=== PATIENT | male | born 1965 | race African-American/Black ===

== ENCOUNTER 2016-12-07 14:17 | Emergency (ER) | payer BC, OTHER ==
[~2016-12-07] VITALS: Ht 172.7 cm; Wt 73.9 kg
--- NOTE | ~2016-12-07 | EKG ---
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 : 1965 Requested By: Jayce Samuel Order Number: [id number] MD: Milad Burns Measurements Intervals [place] Rate: 46 P: -27 FL: 157 QRS: -33 QRSD: 86 T: 2 QT: 440 QTc: 385 Interpretive Statements Sinus bradycardia Left axis deviation Borderline T wave abnormalities Compared to ECG 10/26/2015 15:21:29 No significant changes Electronically Signed On 12-08-2016 7:44:05 CDT by Milad Burns [email or web address] <ELECTRONICALLY SIGNED> By: Milad Burns MD, [facility] 12/08/16 0744 1429 1429 Milad Burns MD, FACC /EPI
[~2016-12-07 14:17] MED LIST: AMOXICILLIN 50500 MG PO; IBUPROFEN200 M1 PO; TYLENOL325 MG PO
[2016-12-07 14:30] LABS: HEMATOCRIT 40.5 % (42.0-52.0); HEMOGLOBIN 14.2 gm/dL (14.0-18.0); MCH 34.2 pg (26.0-34.0); MCHC 35.1 g/dL (28.0-37.0); MCV 97.6 fL (80.0-100.0); PLATELET COUNT 193 thou/uL (150-400); RBC 4.15 mil/uL (4.50-6.00); RDW 13.5 % (10.5-14.5); WBC 4.8 thou/uL (4.0-11.0)
[2016-12-07 14:44] LABS: CALCIUM 8.4 mg/dL (8.5-10.1); MANUAL DIFF YES; POTASSIUM 3.9 mmol/L (3.5-5.1)
[2016-12-07 14:49] LABS: ALBUMIN 3.8 g/dL (3.4-5.0); TOTAL BILIRUBIN 0.7 mg/dL (<0.1-1.0); TOTAL PROTEIN 7.2 g/dL (6.4-8.2)
[2016-12-07 15:08] LABS: ABSOLUTE NEUTROPHILS 1.2 thou/uL (1.4-8.2); ATYPICAL LYMPHS 6 %; TOTAL CELL COUNT 100
[2016-12-07] MEDS ORDERED: LACTULOSE20 GM/30 M PO (16:05)
== END 2016-12-07 16:33 | disposition home or self-care (01) ==
LOC: ER 14:17
PROVIDERS: Emergency Medicine
DX: K59.00 Constipation, unspecified (principal); I10 Essential (primary) hypertension; Z98.890 Other specified postprocedural states; Z88.0 Allergy status to penicillin; F17.200 Nicotine dependence, unspecified, uncomplicated